=== PATIENT | female | born 1990 | race African-American/Black ===

== ENCOUNTER 2018-04-30 13:46 | Emergency (ER) | payer OTHER ==
[2018-04-30 13:54] VITALS: BP 119/76
[2018-04-30] MEDS ORDERED: predniSONE 20 MG TABLET PO STA (15:00)
[2018-04-30] MEDS ORDERED: CETIRIZINE 10 MG TABLET PO STA (15:01)
--- NOTE | 2018-04-30 15:08 | ED Physician Documentation ---
History of Present Illness - Stated complaint Stated Complaint: ALLERGIC REACTION - Chief complaint Chief Complaint: General - History obtained from History obtained from: Patient, Family - History of Present Illness Timing: Other (1 month) Pain level max: 0 Pain level now: 0 - Additonal information Additional information: Patient is a 28-year-old female who presents to the emergency department with a rash over her chest arms and upper thighs. This is been ongoing for the past month. States started after she got a new dog. She is allergic to dogs. She states that she used to have steroid injections every 3 months from an muck operator when she lived in [place], but has not had these injections here. She was placed on 4 mg of methylprednisolone by her primary care provider and this has not improved her rash. She is also taking Benadryl for the itching. She denies any shortness of breath, wheezing, stridor. Denies any possibility of . She is not breast-feeding. 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 - Present Medications Home Medications: Ambulatory Orders Medication Instructions Recorded Confirmed Cetirizine [ZyrTEC] 10 mg PO DAILY #30 tablet 04/30/18 diphenhydrAMINE [Benadryl] 25 mg 04/30/18 methylPREDNISolone 04/30/18 [Methylprednisolone] predniSONE [Deltasone] 10 mg PO [id number] #42 tab 04/30/18 - Allergies Allergies/Adverse Reactions: Allergies Allergy/AdvReac Type Severity Reaction Status Date / Time No Known Drug Allergies Allergy Verified 04/30/18 13:54 PD ED PE NORMAL - Vitals Vital signs reviewed: Yes - General General: Alert and oriented X 3, No acute distress - HEENT HEENT: Moist mucous membranes - Neck Neck: Supple, no meningeal sign - Cardiac Cardiac: RRR, Strong equal pulses - Respiratory Respiratory: No respiratory distress, Clear bilaterally - Abdomen Abdomen: Soft, Non tender, Non distended - Derm Derm: Warm and dry, Other (diffuse scaly, macular exanthem. excoriation oseguera present. ) - Neuro Neuro: Alert and oriented X 3 - Psych Psych: Normal mood, Normal affect Results - Vitals Vitals: Vital Signs - 24 hr 04/30/18 13:51 Temperature 37 C Heart Rate 93 Respiratory 20 Rate Blood Pressure 119/76 O2 Saturation 100 Oxygen O2 Source Room air PD MEDICAL DECISION MAKING - ED course Complexity details: considered differential, d/w patient, d/w family ED course: Patient is a 28-year-old female with dermatitis of unclear etiology. Likely that it is an allergic reaction to her new dog. She did receive steroid injections every 3 months for allergies in the past but has not been receiving these lately. Will place her on steroids and Zyrtec for home and follow-up closely with her PCP for further care. No evidence of secondary infection. No wheezing or stridor. Patient counseled regarding signs and symptoms for which I believe and urgent re-evaluation would be necessary. Patient with good understanding of and agreement to plan and is comfortable going home at this time This document was made in part using voice recognition software. While efforts are made to proofread this document, sound alike and grammatical errors may occur. - Sepsis Event Vital Signs: Vital Signs - 24 hr 04/30/18 13:51 Temperature 37 C Heart Rate 93 Respiratory 20 Rate Blood Pressure 119/76 O2 Saturation 100 Oxygen O2 Source Room air Departure - Departure Disposition: 01 Home, Self Care Clinical Impression: Dermatitis Condition: Good Instructions: ED Allergic Reaction General Other Follow-Up: GIULIANA GONZALEZ DO [Primary Care Provider] - Within 1 week Prescriptions: Cetirizine [ZyrTEC] 10 mg PO DAILY #30 tablet predniSONE [Deltasone] 10 mg PO [id number] #42 tab Comments: You can stop the methylprednisolone. Return if you worsen. Follow-up with your muck operator as scheduled. You should also take images of the rash to show them when you are seen. Discharge Date/Time: 04/30/18 15:19
== END 2018-04-30 15:19 | disposition home or self-care (01) ==
LOC: ED 13:46
DX: L30.9 Dermatitis, unspecified (principal); J30.81 Allergic rhinitis due to animal (cat) (dog) hair and dander
CPT/HCPCS: 99283; A9270; J7512

== ENCOUNTER 2019-04-13 08:43 | Outpatient (CLI) | payer OTHER | END 2019-04-13 08:44 | disposition EMS.NT | LOC: EMS 08:43 | PROVIDERS: ATTEND Surgery | DX: R51 Headache (principal) ==

== ENCOUNTER 2019-10-18 17:24 | Emergency (ER) | payer OTHER ==
[2019-10-18] MEDS ORDERED: TETANUS/DIPHTHERIA/PERTUSSIS 0.5 ML SYRINGE IM ONE (18:41)
--- NOTE | 2019-10-18 18:54 | ED Physician Documentation ---
PD HPI SKIN - Stated complaint Stated Complaint: R ARM DOG BITE - Chief complaint Chief Complaint: Wound - History obtained from History obtained from: Patient - Additional information Additional information: Patient comes emergency department complaining of dog bite to her right arm. Patient states that she was walking her dog and that another person's dog stopped to see her dog. She put her hand out to test the dog out before allowing her dog to come close and the dog bit her forearm. Patient states that the dog was on a leash and that the owners had stated that the dog was "nice". The dog was not acting unusually otherwise. 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 Patient states she was not hurt in any other way. The bite occurred through her jacket, which was torn. Patient denies any difficulty moving her fingers or wrist. No other complaints at this time. She states her last tetanus shot was at least 10 years ago. Review of Systems Ten Systems: 10 systems reviewed and negative Constitutional: reports: Reviewed and negative Eyes: reports: Reviewed and negative Ears: reports: Reviewed and negative Nose: reports: Reviewed and negative Throat: reports: Reviewed and negative Cardiac: reports: Reviewed and negative Respiratory: reports: Reviewed and negative GI: reports: Reviewed and negative : reports: Reviewed and negative Skin: reports: Laceration (s) Musculoskeletal: reports: Reviewed and negative Neurologic: reports: Reviewed and negative Psychiatric: reports: Reviewed and negative Endocrine: reports: Reviewed and negative Immunocompromised: reports: Reviewed and negative PD PAST MEDICAL HISTORY - Past Medical History Past Medical History: No - Past Surgical History 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 - Present Medications Home Medications: Ambulatory Orders Medication Instructions Recorded Confirmed Cetirizine [ZyrTEC] 10 mg PO DAILY #30 tablet 04/30/18 diphenhydrAMINE [Benadryl] 25 mg 04/30/18 methylPREDNISolone 04/30/18 [Methylprednisolone] predniSONE [Deltasone] 10 mg PO [id number] #42 tab 04/30/18 - Allergies Allergies/Adverse Reactions: Allergies Allergy/AdvReac Type Severity Reaction Status Date / Time No Known Drug Allergies Allergy Verified 10/18/19 17:27 - Social History Does the pt smoke?: No Smoking Status: Never smoker Does the pt drink ETOH?: Yes Does the pt have substance abuse?: No - Immunizations Immunizations are current?: Yes - POLST Patient has POLST: No PD ED PE NORMAL - General General: Alert and oriented X 3, No acute distress - HEENT HEENT: Atraumatic, PERRL, EOMI - Cardiac Cardiac: Strong equal pulses - Respiratory Respiratory: No respiratory distress - Derm Derm: Normal color, Warm and dry, Other (Patient has a 1-1/2 cm U-shaped flap laceration on the flexor surface of her mid right forearm. No foreign bodies. The Flap consists of mainly skin with a very small amount of adipose tissue attached underneath. Skin is pigmented due to tattoo and the patient's natural complexion, so it is difficult to tell whether it is dusky or not. Wound bleeding is controlled.) - Extremities Extremities: No deformity, No tenderness to palpate - Neuro Neuro: Alert and oriented X 3, data sme 2-12 intact, No motor deficit, No sensory deficit, Normal speech - Psych Psych: Normal mood, Normal affect Results - Vitals Vitals: Vital Signs - 24 hr 10/18/19 17:28 Temperature 36.9 C Heart Rate 75 Respiratory 14 Rate Blood Pressure 123/70 O2 Saturation 98 Oxygen O2 Source Room air PD MEDICAL DECISION MAKING - ED course Complexity details: re-evaluated patient, considered differential, d/w patient ED course: Patient's tetanus was updated in the emergency department. I have discussed with her that the flap is too thin to suture and will most likely and new skin grow over the wound. I have cleansed the wound with normal saline and have placed a bead of Dermabond over the wound to keep the flap from being pulled back. We discussed home management of the symptoms, as well as usual indicatio ns for return. Departure - Departure Disposition: 01 Home, Self Care Clinical Impression: Animal bite with open wound Condition: Good Instructions: ED Bite Animal General
[2019-10-18 19:33] VITALS: BP 122/74
== END 2019-10-18 19:33 | disposition home or self-care (01) ==
LOC: ED 17:24
DX: S51.851A Open bite of right forearm, initial encounter (principal); W54.0XXA Bitten by dog, initial encounter; Y93.K1 Activity, walking an animal; Z23 Encounter for immunization
CPT/HCPCS: 90471; 99282; 99284